=== PATIENT | male | born 1980 | race Caucasian/White ===

== ENCOUNTER 2023-12-07 10:20 | Inpatient (IN) | payer OTHER ==
[2023-12-07 10:51] VITALS: BMI 29.2
[2023-12-07] MEDS ORDERED: POLYETHYLENE GLYCOL (HEALTHYLAX) 3350 17 GM PACKET PO PRN (11:04)
[2023-12-07] MEDS ORDERED: NALOXONE HCL 0.4 MG/ML VIAL IM PRN (11:04)
[2023-12-07] MEDS ORDERED: LOPERAMIDE HCL 2 MG CAPSULE PO PRN (11:04)
[2023-12-07] MEDS ORDERED: NALOXONE HCL (KLOXXADO) 8 MG SPRAY NS PRN (11:04)
[2023-12-07] MEDS ORDERED: ACETAMINOPHEN 325 MG TABLET (FP) PO PRN (11:04)
[2023-12-07] MEDS ORDERED: IBUPROFEN 400 MG TABLET (FP) PO PRN (11:04)
[2023-12-07] MEDS ORDERED: P-EPHED 60MG/TRIPROLIDI 2.5MG TABLET PO PRN (11:04)
[2023-12-07] MEDS ORDERED: MAG HYDROX/AL HYDROX/SIMETH 30 ML UNIT-DOSE CUP PO PRN (11:04)
[2023-12-07] MEDS ORDERED: MAGNESIUM HYDROX 2400MG/30ML ORAL SUSPENSION 30 ML CUP PO PRN (11:04)
[2023-12-07] MEDS ORDERED: BENZOCAINE/MENTHOL (CHLORASEPTIC ) LOZENGE MM PRN (11:04)
[2023-12-07] MEDS ORDERED: NICOTINE POLACRILEX 2 MG GUM BUC PRN (11:04)
[2023-12-07] MEDS ORDERED: chlordiazePOXIDE HCL 25 MG CAPSULE PO PRN (11:04)
[2023-12-07] MEDS ORDERED: ONDANSETRON *ODT* 4 MG TABLET SL PRN (11:04)
[2023-12-07] MEDS ORDERED: IBUPROFEN 600 MG TABLET (FP) PO PRN (11:04)
[2023-12-07] MEDS ORDERED: BISMUTH SUBSALICYLATE 524 MG/30 ML PO PRN (11:04)
[2023-12-07] MEDS ORDERED: guaiFENesin 600 MG TABLET.ER (FP) PO PRN (11:04)
[2023-12-07] MEDS ORDERED: BENZONATATE 200 MG CAPSULE PO PRN (11:04)
[2023-12-07] MEDS ORDERED: DICYCLOMINE HCL 10 MG CAPSULE PO PRN (11:04)
[2023-12-07] MEDS ORDERED: chlordiazePOXIDE HCL 25 MG CAPSULE ONE (11:38)
[2023-12-07] MEDS ORDERED: NICOTINE 14 MG/24 HOURS TOPICAL PATCH TD ONE (11:38)
[2023-12-07] MEDS ORDERED: levETIRAcetam 500 MG TABLET (FP) PO ONE (11:38)
[2023-12-07] MEDS: chlordiazePOXIDE HCL 25 MG CAPSULE PO SCH ×3 (12:06→22:31)
[2023-12-07] MEDS: levETIRAcetam 500 MG TABLET (FP) PO SCH ×2 (12:12→22:31)
[2023-12-07] MEDS: NICOTINE 14 MG/24 HOURS TOPICAL PATCH TD SCH (12:13)
[2023-12-07] MEDS: MELATONIN 5 MG TABLETS PO SCH (22:31)
[2023-12-07] MEDS: THIAMINE HCL 100 MG TABLET (FP) PO SCH (22:31)
[2023-12-08] MEDS: chlordiazePOXIDE HCL 25 MG CAPSULE PO SCH ×4 (05:34→22:08)
[2023-12-08] MEDS ORDERED: methaDONE HCL 10 MG TABLET PO SCH (08:15)
[2023-12-08] MEDS: methaDONE HCL 40 MG DISPERSABLE TABLET PO SCH (08:59)
[2023-12-08 10:14] LABS: HEMATOCRIT 32.7 % (35.4-49); HEMOGLOBIN 10.4 GM/dL (11.7-16.9); MCH 31.7 pg (25.7-33.7); MCHC 31.9 g/dl (32.0-35.9); MEAN CELL VOLUME 99.1 fl (80-96); MEAN PLT VOLUME 8.7 fl (7.5-11.1); PLATELET COUNT 256 10^3/uL (134-434); RDW 15.6 % (11.9-15.9); WHITE BLOOD COUNT 8.1 K/mm3 (4.0-10.0)
[2023-12-08] MEDS: NICOTINE 14 MG/24 HOURS TOPICAL PATCH TD SCH (10:20)
[2023-12-08] MEDS: levETIRAcetam 500 MG TABLET (FP) PO SCH ×2 (10:20→22:08)
[2023-12-08] MEDS: PRENATAL VITAMINS W/ FOLIC ACID TABLET (FP) PO SCH (10:20)
[2023-12-08 10:23] LABS: POTASSIUM 3.9 mmol/L (3.5-5.1)
[2023-12-08 10:28] LABS: ALBUMIN 2.7 g/dl (3.4-5.0)
[2023-12-08 10:29] LABS: BLOOD UREA NITROGEN 6.3 mg/dL (7-18); CREATININE 0.9 mg/dL (0.55-1.3)
[2023-12-08 10:30] LABS: CALCIUM 8.7 mg/dL (8.5-10.1); TOT PROT 5.7 g/dl (6.4-8.2)
[2023-12-08 10:31] LABS: BILIRUBIN,TOTAL 0.2 mg/dL (0.2-1)
[2023-12-08] MEDS: THIAMINE HCL 100 MG TABLET (FP) PO SCH (22:08)
[2023-12-08] MEDS: MELATONIN 5 MG TABLETS PO SCH (22:08)
[2023-12-09] MEDS: chlordiazePOXIDE HCL 25 MG CAPSULE PO SCH ×4 (05:31→22:15)
[2023-12-09] MEDS: methaDONE HCL 40 MG DISPERSABLE TABLET PO SCH (05:32)
[2023-12-09] MEDS: levETIRAcetam 500 MG TABLET (FP) PO SCH ×2 (10:10→22:14)
[2023-12-09] MEDS: PRENATAL VITAMINS W/ FOLIC ACID TABLET (FP) PO SCH (10:10)
[2023-12-09] MEDS: NICOTINE 14 MG/24 HOURS TOPICAL PATCH TD SCH (10:11)
[2023-12-09] MEDS: MELATONIN 5 MG TABLETS PO SCH (22:13)
[2023-12-09] MEDS: THIAMINE HCL 100 MG TABLET (FP) PO SCH (22:14)
[2023-12-09] MEDS: METHOCARBAMOL 500 MG TABLET PO PRN (22:15)
[2023-12-10] MEDS ORDERED: chlordiazePOXIDE HCL 10 MG CAPSULE PO PRN
[2023-12-10] MEDS: chlordiazePOXIDE HCL 10 MG CAPSULE PO SCH ×4 (05:30→22:18)
[2023-12-10] MEDS: methaDONE HCL 40 MG DISPERSABLE TABLET PO SCH (05:31)
[2023-12-10] MEDS: levETIRAcetam 500 MG TABLET (FP) PO SCH ×2 (10:25→22:17)
[2023-12-10] MEDS: PRENATAL VITAMINS W/ FOLIC ACID TABLET (FP) PO SCH (10:25)
[2023-12-10] MEDS: NICOTINE 14 MG/24 HOURS TOPICAL PATCH TD SCH (10:28)
[2023-12-10] MEDS: THIAMINE HCL 100 MG TABLET (FP) PO SCH (22:17)
[2023-12-10] MEDS: MELATONIN 5 MG TABLETS PO SCH (22:17)
[2023-12-10] MEDS: METHOCARBAMOL 500 MG TABLET PO PRN (22:18)
[2023-12-11] MEDS: chlordiazePOXIDE HCL 10 MG CAPSULE PO SCH ×2 (05:26→17:05)
[2023-12-11] MEDS: methaDONE HCL 40 MG DISPERSABLE TABLET PO SCH (05:26)
[2023-12-11] MEDS: NICOTINE 14 MG/24 HOURS TOPICAL PATCH TD SCH (10:25)
[2023-12-11] MEDS: PRENATAL VITAMINS W/ FOLIC ACID TABLET (FP) PO SCH (10:25)
[2023-12-11] MEDS: MELATONIN 5 MG TABLETS PO SCH (22:09)
[2023-12-11] MEDS: THIAMINE HCL 100 MG TABLET (FP) PO SCH (22:09)
[2023-12-11] MEDS: METHOCARBAMOL 500 MG TABLET PO PRN (22:09)
[2023-12-12] MEDS ORDERED: chlordiazePOXIDE HCL 10 MG CAPSULE PO ONE (05:00)
[2023-12-12] MEDS: methaDONE HCL 40 MG DISPERSABLE TABLET PO SCH (05:15)
[2023-12-12 08:57] VITALS: BP 117/71; PULSE 79; RESP 19; TEMP 98
== END 2023-12-12 10:11 | disposition home or self-care (01) | DRG 773 ==
LOC: YASAS 10:20 → Y3N 11:37
PROVIDERS: ADMIT Allergy & Immunology; ATTEND Allergy & Immunology
PROC: HZ2ZZZZ Detoxification Services for Substance Abuse Treatment (ICD-10-PCS; principal; 2023-12-07)
DX: F10.230 Alcohol dependence with withdrawal, uncomplicated (principal); F11.20 Opioid dependence, uncomplicated; F17.210 Nicotine dependence, cigarettes, uncomplicated; F41.1 Generalized anxiety disorder; Z86.59 Personal history of other mental and behavioral disorders; Z56.0 Unemployment, unspecified; Z59.00 Homelessness unspecified
CPT/HCPCS: 36415; 80053; 85027; 86780; 87635; 87811; 93005; 93010

== ENCOUNTER 2024-05-29 13:11 | Inpatient (IN) | payer OTHER ==
[2024-05-29 13:36] VITALS: BMI 28.2
[2024-05-29] MEDS ORDERED: DICYCLOMINE HCL 10 MG CAPSULE PO PRN (14:32)
[2024-05-29] MEDS ORDERED: BENZOCAINE/MENTHOL (CHLORASEPTIC ) LOZENGE MM PRN (14:32)
[2024-05-29] MEDS ORDERED: NALOXONE (NARCAN) HCL 4 MG/0.1 ML SPRAY NS PRN (14:32)
[2024-05-29] MEDS ORDERED: IBUPROFEN 600 MG TABLET (FP) PO PRN (14:32)
[2024-05-29] MEDS ORDERED: BENZONATATE 200 MG CAPSULE PO PRN (14:32)
[2024-05-29] MEDS ORDERED: IBUPROFEN 400 MG TABLET (FP) PO PRN (14:32)
[2024-05-29] MEDS ORDERED: guaiFENesin 600 MG TABLET.ER (FP) PO PRN (14:32)
[2024-05-29] MEDS ORDERED: BISMUTH SUBSALICYLATE 524 MG/30 ML PO PRN (14:32)
[2024-05-29] MEDS ORDERED: POLYETHYLENE GLYCOL (HEALTHYLAX) 3350 17 GM PACKET PO PRN (14:32)
[2024-05-29] MEDS ORDERED: NALOXONE HCL 0.4 MG/ML VIAL IM PRN (14:32)
[2024-05-29] MEDS ORDERED: LOPERAMIDE HCL 2 MG CAPSULE PO PRN (14:32)
[2024-05-29] MEDS ORDERED: MAG HYDROX/AL HYDROX/SIMETH 30 ML UNIT-DOSE CUP PO PRN (14:32)
[2024-05-29] MEDS: LORazepam 2 MG TABLET PO ONE (14:53)
[2024-05-29] MEDS: NICOTINE 21 MG/24 HOURS TOPICAL PATCH TD SCH (14:53)
[2024-05-29] MEDS ORDERED: NICOTINE 21 MG/24 HOURS TOPICAL PATCH ONE (14:55)
[2024-05-29] MEDS ORDERED: LORazepam 2 MG TABLET ONE (14:56)
[2024-05-29] MEDS: methaDONE HCL 10 MG TABLET PO ONE (15:14)
[2024-05-29] MEDS ORDERED: methaDONE HCL 10 MG TABLET (FOR DETOX USE ONLY) ONE (15:15)
[2024-05-29] MEDS: PANTOPRAZOLE 20 MG TABLET PO SCH (15:41)
[2024-05-29] MEDS: NICOTINE POLACRILEX 4 MG GUM BUC PRN (15:46)
[2024-05-29] MEDS: LORazepam 2 MG TABLET PO SCH (17:08)
[2024-05-29] MEDS ORDERED: MELATONIN 5 MG TABLETS PO SCH (22:00)
[2024-05-29] MEDS: THIAMINE 100 MG TABLET PO SCH (22:13)
[2024-05-29] MEDS: MELATONIN 5 MG TABLETS PO SCH (22:13)
[2024-05-30] MEDS: hydrOXYzine PAMOATE 25 MG CAPSULE (FP) PO PRN (08:11)
[2024-05-30] MEDS: METHOCARBAMOL 500 MG TABLET PO PRN (09:40)
[2024-05-30] MEDS: PRENATAL VITAMINS W/ FOLIC ACID TABLET (FP) PO SCH (09:40)
[2024-05-30 09:44] LABS: HEMOGLOBIN 10.5 GM/dL (11.7-16.9); MCH 32.3 pg (25.7-33.7); MCHC 33.8 g/dl (32.0-35.9); MEAN CELL VOLUME 95.6 fl (80-96); MEAN PLT VOLUME 8.1 fl (7.5-11.1); PLATELET COUNT 366 10^3/uL (134-434); RBC 3.24 M/mm3 (4.00-5.60); RDW 18.1 % (11.9-15.9); WHITE BLOOD COUNT 5.5 K/mm3 (4.0-10.0)
[2024-05-30 09:47] LABS: CHLORIDE 104 mmol/L (98-107); POTASSIUM 4.1 mmol/L (3.5-5.1); SODIUM 141 mmol/L (136-145)
[2024-05-30 09:53] LABS: CALCIUM 8.8 mg/dL (8.5-10.1)
[2024-05-30 09:54] LABS: ANION GAP 5 mmol/L (4-13); BLOOD UREA NITROGEN 8.5 mg/dL (7-18); CO2 31 mmol/L (21-32); GLUCOSE,RANDOM 84 mg/dL (74-106)
[2024-05-30 09:57] LABS: CREATININE 0.7 mg/dL (0.55-1.3); SGOT/AST 19 U/L (15-37); SGPT/ALT 18 U/L (13-61)
[2024-05-30 09:58] LABS: BILIRUBIN,TOTAL 0.4 mg/dL (0.2-1)
[2024-05-30 09:59] LABS: ALK PHOS 116 U/L (45-117); TOT PROT 5.8 g/dl (6.4-8.2)
[2024-05-30] MEDS: methaDONE HCL 10 MG TABLET PO ONE (10:18)
[2024-05-31] MEDS: LORazepam 1 MG TABLET PO SCH (05:27)
[2024-05-31] MEDS ORDERED: methaDONE HCL 10 MG TABLET PO SCH (06:00)
[2024-05-31] MEDS: LORazepam 1 MG TABLET PO PRN (07:58)
[2024-05-31] MEDS: MAGNESIUM HYDROX 2400MG/30ML ORAL SUSPENSION 30 ML CUP PO PRN (10:01)
[2024-05-31] MEDS: ONDANSETRON *ODT* 4 MG TABLET SL PRN (10:05)
[2024-05-31] MEDS: ACETAMINOPHEN 325 MG TABLET (FP) PO PRN (16:49)
[2024-06-01] MEDS: LORazepam 0.5 MG TABLET PO SCH (05:06)
[2024-06-01] MEDS: LORazepam 0.5 MG TABLET PO PRN (14:16)
[2024-06-02] MEDS: LORazepam 0.5 MG TABLET PO ONE (05:40)
[2024-06-02 06:17] VITALS: RESP 16
[2024-06-02 08:51] VITALS: BP 108/76; PULSE 68; TEMP 97.1
== END 2024-06-02 10:15 | disposition other institution (70) | DRG 773 ==
LOC: YASAS 13:11 → Y3N 14:31 → Y6N 14:32
PROVIDERS: ADMIT Allergy & Immunology; ATTEND Surgery
PROC: HZ2ZZZZ Detoxification Services for Substance Abuse Treatment (ICD-10-PCS; principal; 2024-05-29)
DX: F10.230 Alcohol dependence with withdrawal, uncomplicated (principal); F13.230 Sedative, hypnotic or anxiolytic dependence with withdrawal, uncomplicated; F11.20 Opioid dependence, uncomplicated; F17.210 Nicotine dependence, cigarettes, uncomplicated; F41.9 Anxiety disorder, unspecified; F90.9 Attention-deficit hyperactivity disorder, unspecified type; K21.9 Gastro-esophageal reflux disease without esophagitis; M54.50 Low back pain, unspecified; G89.29 Other chronic pain; Z56.0 Unemployment, unspecified; Z59.01 Sheltered homelessness
CPT/HCPCS: 36415; 80053; 80305; 80307; 85027; 86780; 93005; 93010; Q0162

== ENCOUNTER 2024-07-29 14:16 | Inpatient (IN) | payer OTHER ==
[2024-07-29 15:48] VITALS: BMI 27.6
[2024-07-29] MEDS ORDERED: BENZONATATE 200 MG CAPSULE PO PRN (18:57)
[2024-07-29] MEDS ORDERED: guaiFENesin 600 MG TABLET.ER (FP) PO PRN (18:57)
[2024-07-29] MEDS ORDERED: MAGNESIUM HYDROX 2400MG/30ML ORAL SUSPENSION 30 ML CUP PO PRN (18:57)
[2024-07-29] MEDS ORDERED: IBUPROFEN 600 MG TABLET (FP) PO PRN (18:57)
[2024-07-29] MEDS ORDERED: IBUPROFEN 400 MG TABLET (FP) PO PRN (18:57)
[2024-07-29] MEDS ORDERED: NALOXONE HCL 0.4 MG/ML VIAL IM PRN (18:57)
[2024-07-29] MEDS ORDERED: BISMUTH SUBSALICYLATE 524 MG/30 ML PO PRN (18:57)
[2024-07-29] MEDS ORDERED: NALOXONE (NARCAN) HCL 4 MG/0.1 ML SPRAY NS PRN (18:57)
[2024-07-29] MEDS ORDERED: LOPERAMIDE HCL 2 MG CAPSULE PO PRN (18:57)
[2024-07-29] MEDS ORDERED: MAG HYDROX/AL HYDROX/SIMETH 30 ML UNIT-DOSE CUP PO PRN (18:57)
[2024-07-29] MEDS ORDERED: ACETAMINOPHEN 325 MG TABLET (FP) PO PRN (18:57)
[2024-07-29] MEDS ORDERED: hydrOXYzine PAMOATE 25 MG CAPSULE (FP) PO PRN (18:57)
[2024-07-29] MEDS ORDERED: DICYCLOMINE HCL 10 MG CAPSULE PO PRN (18:57)
[2024-07-29] MEDS ORDERED: BENZOCAINE/MENTHOL (CHLORASEPTIC ) LOZENGE MM PRN (18:57)
[2024-07-29] MEDS ORDERED: ONDANSETRON *ODT* 4 MG TABLET SL PRN (18:57)
[2024-07-29] MEDS ORDERED: diazePAM 5 MG TABLET ONE (19:36)
[2024-07-29] MEDS: diazePAM 5 MG TABLET PO PRN (19:38)
[2024-07-29] MEDS: MELATONIN 5 MG TABLETS PO SCH (22:28)
[2024-07-29] MEDS: THIAMINE 100 MG TABLET PO SCH (22:28)
[2024-07-29] MEDS: diazePAM 5 MG TABLET PO SCH (22:30)
[2024-07-30] MEDS: methaDONE HCL 10 MG TABLET PO SCH (07:46)
[2024-07-30] MEDS: PRENATAL VITAMINS W/ FOLIC ACID TABLET (FP) PO SCH (09:18)
[2024-07-30] MEDS: NICOTINE POLACRILEX 2 MG GUM BC PRN (10:04)
[2024-07-30] MEDS: METHOCARBAMOL 500 MG TABLET PO PRN (10:06)
[2024-07-30 13:19] LABS: HEMATOCRIT 35.4 % (35.4-49); HEMOGLOBIN 11.3 GM/dL (11.7-16.9); MCH 30.8 pg (25.7-33.7); MCHC 31.9 g/dl (32.0-35.9); MEAN CELL VOLUME 96.6 fl (80-96); MEAN PLT VOLUME 9.3 fl (7.5-11.1); PLATELET COUNT 294 10^3/uL (134-434); RBC 3.66 M/mm3 (4.00-5.60); RDW 17.7 % (11.9-15.9); WHITE BLOOD COUNT 5.1 K/mm3 (4.0-10.0)
[2024-07-30 13:46] LABS: CHLORIDE 104 mmol/L (98-107); POTASSIUM 4.3 mmol/L (3.5-5.1); SODIUM 138 mmol/L (136-145)
[2024-07-30 13:48] LABS: CALCIUM 9.3 mg/dL (8.5-10.1)
[2024-07-30 13:49] LABS: ALBUMIN 3.2 g/dl (3.4-5.0); GLUCOSE,RANDOM 89 mg/dL (74-106)
[2024-07-30 13:51] LABS: ANION GAP 9 mmol/L (4-13); BLOOD UREA NITROGEN 9.4 mg/dL (7-18); CO2 26 mmol/L (21-32); CREATININE 0.5 mg/dL (0.55-1.3)
[2024-07-30 13:52] LABS: SGOT/AST 47 U/L (15-37); SGPT/ALT 40 U/L (13-61)
[2024-07-30 13:53] LABS: BILIRUBIN,TOTAL 0.9 mg/dL (0.2-1); TOT PROT 6.3 g/dl (6.4-8.2)
[2024-07-30 13:54] LABS: ALK PHOS 113 U/L (45-117)
[2024-07-30] MEDS: MELATONIN 5 MG TABLETS PO SCH (22:36)
[2024-07-31] MEDS: diazePAM 5 MG TABLET PO SCH (05:30)
[2024-07-31] MEDS: hydrOXYzine PAMOATE 25 MG CAPSULE (FP) PO PRN (10:25)
[2024-07-31] MEDS: POLYETHYLENE GLYCOL (HEALTHYLAX) 3350 17 GM PACKET PO PRN (21:19)
[2024-08-01] MEDS: diazePAM 5 MG TABLET PO SCH (05:25)
[2024-08-01 22:47] VITALS: TEMP 98.9
[2024-08-02] MEDS: diazePAM 5 MG TABLET PO ONE (05:21)
[2024-08-02 06:18] VITALS: BP 107/68; PULSE 75; RESP 16
== END 2024-08-02 09:32 | disposition home or self-care (01) | DRG 773 ==
LOC: YASAS 14:16 → Y6N 19:45
PROVIDERS: ADMIT Allergy & Immunology; ATTEND Surgery
PROC: HZ2ZZZZ Detoxification Services for Substance Abuse Treatment (ICD-10-PCS; principal; 2024-07-29)
DX: F10.230 Alcohol dependence with withdrawal, uncomplicated (principal); F11.20 Opioid dependence, uncomplicated; F17.213 Nicotine dependence, cigarettes, with withdrawal; F19.282 Other psychoactive substance dependence with psychoactive substance-induced sleep disorder; F19.280 Other psychoactive substance dependence with psychoactive substance-induced anxiety disorder; F41.9 Anxiety disorder, unspecified; F43.10 Post-traumatic stress disorder, unspecified; K76.0 Fatty (change of) liver, not elsewhere classified; K21.9 Gastro-esophageal reflux disease without esophagitis; M54.50 Low back pain, unspecified; G89.29 Other chronic pain; Z59.01 Sheltered homelessness; Z56.0 Unemployment, unspecified; Z87.828 Personal history of other (healed) physical injury and trauma
CPT/HCPCS: 36415; 80053; 80305; 80307; 85027; 86780; 93005; 93010

== ENCOUNTER 2024-08-25 13:33 | Inpatient (IN) | payer OTHER ==
[2024-08-25 14:33] VITALS: BMI 26.4
[2024-08-25] MEDS ORDERED: BISMUTH SUBSALICYLATE 262 MG/15 ML BTL PO PRN (15:06)
[2024-08-25] MEDS ORDERED: guaiFENesin 600 MG TABLET.ER (FP) PO PRN (15:06)
[2024-08-25] MEDS ORDERED: NALOXONE (NYS OPIOID OVERDOSE PROGRAM) 4 MG/0.1 ML SPRAY NS PRN (15:06)
[2024-08-25] MEDS ORDERED: POLYETHYLENE GLYCOL (HEALTHYLAX) 3350 17 GM PACKET PO PRN (15:06)
[2024-08-25] MEDS ORDERED: DICYCLOMINE HCL 10 MG CAPSULE PO PRN (15:06)
[2024-08-25] MEDS ORDERED: NICOTINE POLACRILEX 2 MG LOZENGE BC PRN (15:06)
[2024-08-25] MEDS ORDERED: NALOXONE (NARCAN) HCL 4 MG/0.1 ML SPRAY NS PRN (15:06)
[2024-08-25] MEDS ORDERED: BENZOCAINE/MENTHOL (CHLORASEPTIC ) LOZENGE MM PRN (15:06)
[2024-08-25] MEDS ORDERED: BENZONATATE 200 MG CAPSULE PO PRN (15:06)
[2024-08-25] MEDS ORDERED: LOPERAMIDE HCL 2 MG CAPSULE PO PRN (15:06)
[2024-08-25] MEDS ORDERED: IBUPROFEN 400 MG TABLET (FP) PO PRN (15:06)
[2024-08-25] MEDS ORDERED: IBUPROFEN 600 MG TABLET (FP) PO PRN (15:06)
[2024-08-25] MEDS ORDERED: MAGNESIUM HYDROX 2400MG/30ML ORAL SUSPENSION 30 ML CUP PO PRN (15:06)
[2024-08-25] MEDS ORDERED: ACETAMINOPHEN 325 MG TABLET (FP) PO PRN (15:06)
[2024-08-25] MEDS ORDERED: levETIRAcetam 500 MG TABLET (FP) PO ONE (15:52)
[2024-08-25] MEDS ORDERED: LORazepam 2 MG TABLET ONE (15:53)
[2024-08-25] MEDS: LORazepam 2 MG TABLET PO ONE (15:55)
[2024-08-25] MEDS: levETIRAcetam 500 MG TABLET (FP) PO SCH (15:56)
[2024-08-25] MEDS ORDERED: chlordiazePOXIDE HCL 25 MG CAPSULE ONE (17:03)
[2024-08-25] MEDS: MAG HYDROX/AL HYDROX/SIMETH 30 ML UNIT-DOSE CUP PO PRN (17:30)
[2024-08-25] MEDS: chlordiazePOXIDE HCL 25 MG CAPSULE PO SCH (17:42)
[2024-08-25] MEDS: MELATONIN 5 MG TABLETS PO SCH (22:06)
[2024-08-25] MEDS: THIAMINE 100 MG TABLET PO SCH (22:06)
[2024-08-26] MEDS ORDERED: methaDONE HCL 10 MG TABLET PO SCH (08:45)
[2024-08-26] MEDS: PRENATAL VITAMINS W/ FOLIC ACID TABLET (FP) PO SCH (09:18)
[2024-08-26] MEDS: chlordiazePOXIDE HCL 25 MG CAPSULE PO PRN (09:19)
[2024-08-26] MEDS: NICOTINE 14 MG/24 HOURS TOPICAL PATCH TD SCH (10:58)
[2024-08-26] MEDS: NICOTINE POLACRILEX 2 MG GUM BUC PRN ×2 (12:22→14:32)
[2024-08-26] MEDS: ONDANSETRON *ODT* 4 MG TABLET SL PRN (14:31)
[2024-08-26] MEDS: METHOCARBAMOL 500 MG TABLET PO PRN (22:14)
[2024-08-27] MEDS: chlordiazePOXIDE HCL 25 MG CAPSULE PO SCH (05:32)
[2024-08-27] MEDS: chlordiazePOXIDE HCL 25 MG CAPSULE PO ONE (13:17)
[2024-08-27] MEDS: hydrOXYzine PAMOATE 25 MG CAPSULE (FP) PO PRN (13:18)
[2024-08-27] MEDS: METHOCARBAMOL 500 MG TABLET PO PRN (22:44)
[2024-08-27] MEDS: cloNIDine HCL 0.1 MG TABLET PO PRN (22:44)
[2024-08-28] MEDS: chlordiazePOXIDE HCL 10 MG CAPSULE PO SCH (05:47)
[2024-08-28] MEDS: chlordiazePOXIDE HCL 10 MG CAPSULE PO PRN (13:01)
[2024-08-29] MEDS: chlordiazePOXIDE HCL 10 MG CAPSULE PO SCH (05:25)
[2024-08-30] MEDS: chlordiazePOXIDE HCL 10 MG CAPSULE PO ONE (06:00)
[2024-08-30 06:47] VITALS: BP 103/64; PULSE 61; RESP 18; TEMP 97.6
== END 2024-08-30 09:24 | disposition home or self-care (01) | DRG 773 ==
LOC: YASAS 13:33 → Y3N 16:40
PROVIDERS: ADMIT Allergy & Immunology; ATTEND Surgery
PROC: HZ2ZZZZ Detoxification Services for Substance Abuse Treatment (ICD-10-PCS; principal; 2024-08-25)
DX: F10.230 Alcohol dependence with withdrawal, uncomplicated (principal); F11.20 Opioid dependence, uncomplicated; F17.210 Nicotine dependence, cigarettes, uncomplicated; F43.10 Post-traumatic stress disorder, unspecified; F32.A Depression, unspecified; F41.9 Anxiety disorder, unspecified; G62.9 Polyneuropathy, unspecified; K76.0 Fatty (change of) liver, not elsewhere classified
CPT/HCPCS: 80305; Q0162

== ENCOUNTER 2024-09-14 22:08 | Inpatient (IN) | payer OTHER ==
[2024-09-14 22:37] VITALS: BMI 27.6
[2024-09-14] MEDS ORDERED: guaiFENesin 600 MG TABLET.ER (FP) PO PRN (23:13)
[2024-09-14] MEDS ORDERED: POLYETHYLENE GLYCOL (HEALTHYLAX) 3350 17 GM PACKET PO PRN (23:13)
[2024-09-14] MEDS ORDERED: DICYCLOMINE HCL 10 MG CAPSULE PO PRN (23:13)
[2024-09-14] MEDS ORDERED: NALOXONE (NARCAN) HCL 4 MG/0.1 ML SPRAY NS PRN (23:13)
[2024-09-14] MEDS ORDERED: ONDANSETRON *ODT* 4 MG TABLET SL PRN (23:13)
[2024-09-14] MEDS ORDERED: BISMUTH SUBSALICYLATE 524 MG/30 ML PO PRN (23:13)
[2024-09-14] MEDS ORDERED: ACETAMINOPHEN 325 MG TABLET (FP) PO PRN (23:13)
[2024-09-14] MEDS ORDERED: IBUPROFEN 400 MG TABLET (FP) PO PRN (23:13)
[2024-09-14] MEDS ORDERED: chlordiazePOXIDE HCL 25 MG CAPSULE PO PRN (23:13)
[2024-09-14] MEDS ORDERED: BENZONATATE 200 MG CAPSULE PO PRN (23:13)
[2024-09-14] MEDS ORDERED: BENZOCAINE/MENTHOL (CHLORASEPTIC ) LOZENGE MM PRN (23:13)
[2024-09-14] MEDS ORDERED: MAG HYDROX/AL HYDROX/SIMETH 30 ML UNIT-DOSE CUP PO PRN (23:13)
[2024-09-14] MEDS ORDERED: LOPERAMIDE HCL 2 MG CAPSULE PO PRN (23:13)
[2024-09-14] MEDS ORDERED: IBUPROFEN 600 MG TABLET (FP) PO PRN (23:13)
[2024-09-14] MEDS ORDERED: MAGNESIUM HYDROX 2400MG/30ML ORAL SUSPENSION 30 ML CUP PO PRN (23:13)
[2024-09-14] MEDS: chlordiazePOXIDE HCL 25 MG CAPSULE PO SCH (23:50)
[2024-09-15] MEDS: NICOTINE POLACRILEX 2 MG LOZENGE BC PRN (05:45)
[2024-09-15] MEDS: LORazepam 2 MG TABLET PO SCH (10:20)
[2024-09-15] MEDS: METHOCARBAMOL 500 MG TABLET PO PRN (10:20)
[2024-09-15] MEDS: PRENATAL VITAMINS W/ FOLIC ACID TABLET (FP) PO SCH (10:21)
[2024-09-15] MEDS: NICOTINE 14 MG/24 HOURS TOPICAL PATCH TD SCH (10:23)
[2024-09-15] MEDS: methaDONE HCL 10 MG TABLET PO SCH (10:25)
[2024-09-15 12:07] LABS: HEMATOCRIT 33.7 % (35.4-49); HEMOGLOBIN 11.2 GM/dL (11.7-16.9); MCH 31.4 pg (25.7-33.7); MCHC 33.3 g/dl (32.0-35.9); MEAN CELL VOLUME 94.5 fl (80-96); MEAN PLT VOLUME 8.8 fl (7.5-11.1); PLATELET COUNT 184 10^3/uL (134-434); RBC 3.57 M/mm3 (4.00-5.60); RDW 18.1 % (11.9-15.9); WHITE BLOOD COUNT 4.8 K/mm3 (4.0-10.0)
[2024-09-15 12:35] LABS: CHLORIDE 98 mmol/L (98-107); POTASSIUM 3.5 mmol/L (3.5-5.1); SODIUM 136 mmol/L (136-145)
[2024-09-15 12:39] LABS: ALBUMIN 2.9 g/dl (3.4-5.0); ANION GAP 7 mmol/L (4-13); BLOOD UREA NITROGEN 9.1 mg/dL (7-18); CALCIUM 8.8 mg/dL (8.5-10.1); CO2 31 mmol/L (21-32); GLUCOSE,RANDOM 91 mg/dL (74-106)
[2024-09-15 12:43] LABS: CREATININE 0.6 mg/dL (0.55-1.3); SGOT/AST 111 U/L (15-37); SGPT/ALT 79 U/L (13-61)
[2024-09-15 12:45] LABS: ALK PHOS 121 U/L (45-117); BILIRUBIN,TOTAL 0.9 mg/dL (0.2-1); TOT PROT 5.8 g/dl (6.4-8.2)
[2024-09-15] MEDS: LORazepam 1 MG TABLET PO PRN (13:23)
[2024-09-15] MEDS: MELATONIN 5 MG TABLETS PO SCH (22:02)
[2024-09-15] MEDS: THIAMINE 100 MG TABLET PO SCH (22:03)
[2024-09-16] MEDS: hydrOXYzine PAMOATE 25 MG CAPSULE (FP) PO PRN (02:35)
[2024-09-16] MEDS: NICOTINE POLACRILEX 2 MG GUM BUC PRN (02:37)
[2024-09-16] MEDS ORDERED: chlordiazePOXIDE HCL 25 MG CAPSULE PO SCH (05:00)
[2024-09-16] MEDS: LORazepam 1 MG TABLET PO SCH (05:57)
[2024-09-17] MEDS ORDERED: chlordiazePOXIDE HCL 10 MG CAPSULE PO PRN
[2024-09-17] MEDS: LORazepam 0.5 MG TABLET PO PRN (01:32)
[2024-09-17] MEDS ORDERED: chlordiazePOXIDE HCL 10 MG CAPSULE PO SCH (05:00)
[2024-09-17] MEDS: LORazepam 0.5 MG TABLET PO SCH (05:36)
[2024-09-17] MEDS: NICOTINE POLACRILEX 2 MG GUM BC PRN (10:15)
[2024-09-18] MEDS ORDERED: chlordiazePOXIDE HCL 10 MG CAPSULE PO SCH (05:00)
[2024-09-18] MEDS: LORazepam 0.5 MG TABLET PO ONE ×2 (05:47→13:55)
[2024-09-19] MEDS ORDERED: chlordiazePOXIDE HCL 10 MG CAPSULE PO ONE (05:00)
[2024-09-20 05:51] VITALS: RESP 17
[2024-09-20 08:54] VITALS: BP 108/70; PULSE 62; TEMP 98.4
[2024-09-20] MEDS: NALOXONE (NYS OPIOID OVERDOSE PROGRAM) 4 MG/0.1 ML SPRAY NS PRN (11:04)
== END 2024-09-20 10:00 | disposition home or self-care (01) | DRG 773 ==
LOC: YASAS 22:08 → Y3N 23:17
PROVIDERS: ADMIT Allergy & Immunology; ATTEND Surgery
PROC: HZ2ZZZZ Detoxification Services for Substance Abuse Treatment (ICD-10-PCS; principal; 2024-09-14)
DX: F10.230 Alcohol dependence with withdrawal, uncomplicated (principal); F11.20 Opioid dependence, uncomplicated; F17.210 Nicotine dependence, cigarettes, uncomplicated; F43.10 Post-traumatic stress disorder, unspecified; F41.9 Anxiety disorder, unspecified; Z59.01 Sheltered homelessness
CPT/HCPCS: 36415; 80053; 80305; 80307; 85027; 86780

== ENCOUNTER 2025-07-06 08:48 | Inpatient (IN) | payer OTHER ==
[2025-07-06 09:10] VITALS: BMI 24.9
[2025-07-06] MEDS ORDERED: POLYETHYLENE GLYCOL (HEALTHYLAX) 3350 17 GM PACKET PO PRN (09:18)
[2025-07-06] MEDS ORDERED: IBUPROFEN 400 MG TABLET (FP) PO PRN (09:18)
[2025-07-06] MEDS ORDERED: BENZONATATE 200 MG CAPSULE PO PRN (09:18)
[2025-07-06] MEDS ORDERED: P-EPHED 60MG/TRIPROLIDI 2.5MG TABLET PO PRN (09:18)
[2025-07-06] MEDS ORDERED: LOPERAMIDE HCL 2 MG CAPSULE PO PRN (09:18)
[2025-07-06] MEDS ORDERED: ACETAMINOPHEN 325 MG TABLET (FP) PO PRN (09:18)
[2025-07-06] MEDS ORDERED: MAG HYDROX/AL HYDROX/SIMETH 30 ML UNIT-DOSE CUP PO PRN (09:18)
[2025-07-06] MEDS ORDERED: ONDANSETRON *ODT* 4 MG TABLET SL PRN (09:18)
[2025-07-06] MEDS ORDERED: NALOXONE (NARCAN) HCL 4 MG/0.1 ML SPRAY NS PRN (09:18)
[2025-07-06] MEDS ORDERED: BENZOCAINE/MENTHOL (CHLORASEPTIC ) LOZENGE MM PRN (09:18)
[2025-07-06] MEDS ORDERED: DICYCLOMINE HCL 10 MG CAPSULE PO PRN (09:18)
[2025-07-06] MEDS ORDERED: MAGNESIUM HYDROX 2400MG/30ML ORAL SUSPENSION 30 ML CUP PO PRN (09:18)
[2025-07-06] MEDS ORDERED: BISMUTH SUBSALICYLATE 524 MG/30 ML PO PRN (09:18)
[2025-07-06] MEDS ORDERED: guaiFENesin 600 MG TABLET.ER (FP) PO PRN (09:18)
[2025-07-06] MEDS ORDERED: PRENATAL VITAMINS W/ FOLIC ACID TABLET (FP) PO ONE (11:59)
[2025-07-06] MEDS ORDERED: levETIRAcetam 500 MG TABLET (FP) PO ONE (11:59)
[2025-07-06] MEDS: PRENATAL VITAMINS W/ FOLIC ACID TABLET (FP) PO SCH (12:02)
[2025-07-06] MEDS: levETIRAcetam 500 MG TABLET (FP) PO SCH (12:02)
[2025-07-06] MEDS: NICOTINE POLACRILEX 2 MG GUM BUC PRN (16:50)
[2025-07-06] MEDS: NICOTINE POLACRILEX 2 MG LOZENGE BC PRN (19:12)
[2025-07-06] MEDS: MELATONIN 5 MG TABLETS PO SCH (22:36)
[2025-07-06] MEDS: THIAMINE 100 MG TABLET PO SCH (22:36)
[2025-07-07] MEDS: hydrOXYzine PAMOATE 25 MG CAPSULE (FP) PO PRN (02:56)
[2025-07-07 11:19] LABS: MCHC 31.3 g/dl (32.3-36.5); MEAN CELL VOLUME 96.4 fl (79.0-92.2); MEAN PLT VOLUME 10.1 fl (9.4-12.4); RDW 17.2 % (12.1-15.9)
[2025-07-07 11:42] LABS: GLUCOSE,RANDOM 114 mg/dL (74-106); TOT PROT 6.3 g/dl (6.4-8.2)
[2025-07-07 11:43] LABS: CO2 26 mmol/L (21-32)
[2025-07-07 11:45] LABS: ALK PHOS 67 U/L (40-150)
[2025-07-07 11:47] LABS: SGOT/AST 54 U/L (5-34); SGPT/ALT 38 U/L (0-55)
[2025-07-07 11:48] LABS: CREATININE 0.62 mg/dL (0.55-1.3)
[2025-07-07] MEDS: IBUPROFEN 600 MG TABLET (FP) PO PRN (13:15)
[2025-07-07] MEDS: SUVOREXANT 10 MG TABLET PO PRN (22:14)
[2025-07-08] MEDS: METHOCARBAMOL 500 MG TABLET PO PRN (12:05)
[2025-07-08] MEDS: GABAPENTIN 100 MG CAPSULE PO SCH (13:26)
[2025-07-10] MEDS: GABAPENTIN 300 MG CAPSULE PO SCH (05:29)
[2025-07-11] MEDS: GABAPENTIN 300 MG CAPSULE PO SCH (13:20)
[2025-07-11] MEDS: hydrOXYzine PAMOATE 50 MG CAPSULE (FP) PO PRN (13:22)
[2025-07-11] MEDS: ACAMPROSATE CALCIUM 333 MG TABLET.DR PO SCH (13:25)
[2025-07-12 08:51] VITALS: BP 127/80; PULSE 109; RESP 18; TEMP 98.6
== END 2025-07-12 09:49 | disposition home or self-care (01) | DRG 773 ==
LOC: YASAS 08:48 → Y6N 11:17
PROVIDERS: ADMIT Neuromusculoskeletal Medicine & OMM; ATTEND Counselor Addiction (Substance Use Disorder)
PROC: HZ2ZZZZ Detoxification Services for Substance Abuse Treatment (ICD-10-PCS; principal; 2025-07-06)
DX: F10.230 Alcohol dependence with withdrawal, uncomplicated (principal); F11.20 Opioid dependence, uncomplicated; F13.20 Sedative, hypnotic or anxiolytic dependence, uncomplicated; F17.210 Nicotine dependence, cigarettes, uncomplicated; F10.282 Alcohol dependence with alcohol-induced sleep disorder; F10.280 Alcohol dependence with alcohol-induced anxiety disorder; F90.9 Attention-deficit hyperactivity disorder, unspecified type; F41.9 Anxiety disorder, unspecified; D50.9 Iron deficiency anemia, unspecified; I10 Essential (primary) hypertension; K21.9 Gastro-esophageal reflux disease without esophagitis; K76.0 Fatty (change of) liver, not elsewhere classified; Z59.01 Sheltered homelessness
CPT/HCPCS: 36415; 80053; 80307; 85027; 86780; 93005; 93010